=== PATIENT | female | born 2000 | race Caucasian/White ===

== ENCOUNTER 2021-05-24 08:33 | Outpatient (CLI) | payer BC, SELFPAY ==
--- NOTE | 2021-05-24 | ECHO_ITS ---
Patient Info Name: Lamar Ragsdale Age: 21 years : 2000 Gender: Female Ht: 68 in Wt: 234 lbs BSA: 2.30 m2 HR: 64 bpm BP: 124 / 87 mmHg Technical Quality: Good Exam Date: 05/24/2021 9:06 AM Exam Location: [facility] Patient Status: Outpatient Admit Date: 05/24/2021 Staff Ordering Physician: Eboni, Damaris Jacinto MD [place] Technician: Brit Burton RDCS Attending Provider: Eboni, Damaris Jacinto MD Referring Physician: Eboni CLRAK; Exam Type: CA echo doppler color flow Study Info Indications R00.2 - Palpitations Complete two-dimensional, color flow and Doppler transthoracic echocardiogram is performed. Summary 1. Complete two-dimensional, color flow and Doppler transthoracic echocardiogram is performed. 2. Left ventricular chamber dimension is normal. 3. Left ventricular systolic function is normal, estimated at 60-65%. 4. The left ventricular diastolic function is normal. 5. No pulmonary hypertension, estimated pulmonary arterial systolic pressure is 21 mmHg. Left Ventricle Tissue doppler is not performed. Left ventricular chamber dimension is normal. Left ventricular systolic function is normal, estimated at 60-65%. The left ventricular diastolic function is normal. Right Ventricle Right ventricular chamber dimension is normal. Right ventricular systolic function is normal. Left Atria Left atrial chamber dimension is normal. Right Atria Right atrial chamber dimension is normal. Aortic Valve The aortic valve is trileaflet. There is no aortic valve stenosis. There is no aortic valve regurgitation. Pulmonic Valve There is no pulmonic regurgitation. Mitral Valve There is no mitral valve stenosis. There is no mitral valve regurgitation. Tricuspid Valve There is no tricuspid valve regurgitation. No pulmonary hypertension, estimated pulmonary arterial systolic pressure is 21 mmHg. Pericardium/Pleural There is no pericardial effusion. Inferior Vena Cava Normal inferior vena cava with >50% collapse upon inspiration consistent with normal right atrial pressure, 5 mmHg. Aorta The aortic root size at the sinus of Valsalva is normal. Left Ventricular Outflow Tract Name Value Normal LVOT 2D LVOT Diameter 2.1 cm LVOT Doppler LVOT Peak Gradient 3 mmHg LVOT Mean Gradient 2 mmHg LVOT VTI 21 cm LVOT VTI/AV VTI Ratio 0.9 LVOT Stroke Volume 73 ml LVOT CO 4.5 l/min LVOT CI 2.0 l/min/m2 Pulmonic Valve Name Value Normal RVOT Doppler RVOT Peak Gradient 2 mmHg PV Doppler PV Peak Gradient
== END 2021-05-24 08:34 | disposition home or self-care (01) ==
PROVIDERS: PCP Pediatrics; Visit Provider Family Medicine
DX: R00.2 Palpitations (principal)
CPT/HCPCS: 93306

== ENCOUNTER 2022-02-16 10:38 | Emergency (ER) | payer BC, SELFPAY ==
[2022-02-16 10:46] VITALS: BP 116/79; PULSE 87; RESP 16; TEMP 35.8; O2SAT 99
--- NOTE | 2022-02-16 10:56 | ED.NAVMDI ---
HPI - Nausea/Vomiting/Diarrhea General Chief complaint: Nausea/Vomiting/Diarrhea Stated complaint: vomiting/lenz Time Seen by Provider: 02/16/22 10:56 Source: patient and RN notes reviewed Mode of arrival: ambulatory Limitations: no limitations History of Present Illness HPI Narrative: 22 y/o female presented for c/o headache and vomiting, onset 0230. Rates pain 11/03. Denies hematemesis, abdominal pain, diarrhea, photophobia, dizziness, vision changes, fever, body aches. Attempted advil 0700 but vomited after. Patient states previous two episodes required ER meds. Denies diagnosis of migraines. Denies sick contacts. LMP 2 weeks, IUD. Related Data Home Medications Medication Instructions Recorded Confirmed copper 380 square mm intrauterine 1 device intrauterine ONCE 06/05/21 02/16/22 device (ParaGard T 380A) Allergies Allergy/AdvReac Type Severity Reaction Status Date / Time shrimp Allergy Severe Difficulty Verified 02/16/22 10:41 Swallowing latex Allergy Intermediate Itching Verified 02/16/22 10:41 Review of Systems Review of Systems: CONSTITUTIONAL: Denies body aches, fever, chills ENT: Denies rhinorrhea, congestion CARDIOVASCULAR: Denies chest pain, palpitations, or edema. RESPIRATORY: Denies cough or dyspnea. GASTROINTESTINAL: Endorses nausea, vomiting. GENITOURINARY: Denies dysuria, hematuria, or CVA tenderness. SKIN: Denies rash, itching, or wounds. MUSCULOSKELETAL: Denies back pain, joint pain, or myalgia. NEUROLOGIC: reports headache, Denies numbness, tingling, or weakness. All systems reviewed & are unremarkable except as noted in HPI and below PMFSH Past Medical History Medical History Encounter for Nexplanon removal 01/09/2020 Insertion of Nexplanon (~01/25/17) Surgical History Surgical History H/O gynecological procedure Paragard insertion - 10/01/2020 History of cholecystectomy History of gynecological procedure mirena iud insertion - 01/16/2020 mirena iud removal - 10/01/2020 History of tonsillectomy Family History Family History Father Family history of thyroid disease Diverticulitis Grandparent Family history of thyroid disease Family history of malignant neoplasm of breast, Onset Age: 40 Sibling Epilepsy Asperger's disorder Mother Diabetes mellitus Social History Social History Smoking status: Never smoker Second hand tobacco smoke exposure: No Alcohol intake: never Comments At time of signature, I have reviewed and agree with nursing past medical, surgical, social and family history unless otherwise noted. Please see nursing chart for further information. There is no relevant family history pertinent to the presenting complaint Exam Narrative: GENERAL: ill-appearing, in no acute distress. EYES: EOMI. Conjunctivae normal. ENT: Mucous membranes pink and moist. CHEST: Clear to auscultation. HEART: Regular rate and rhythm. No murmur appreciated. Normal peripheral pulses. ABDOMEN: abd soft, nondistended, normal active bowel sounds. Pt is heaving and holding emesis basin. SKIN: Warm, dry, no rash. Capillary refill normal. Normal skin turgor. NEURO: Alert and oriented x3. PSYCH: Normal affect. Course Course Emergency Course: Patient is aware of diagnosis, understands and agrees to treatment plan. Anticipatory guidance given. Portions of this record may have been created with voice recognition software Level of Care: Express Care Visit Vital Signs Vital signs: Vital Signs Temperature 96.5 F L 02/16/22 10:46 Pulse Rate 87 02/16/22 10:46 Respiratory Rate 16 02/16/22 10:46 Blood Pressure 116/79 02/16/22 10:46 Pulse Oximetry 99 02/16/22 10:46 Oxygen Delivery Room Air 02/16/22 10:46 Temperature
[2022-02-16] MEDS: KETOROLAC (*BKC) 60 MG/2 ML VIAL IM (11:16)
[2022-02-16] MEDS: ONDANSETRON HCL ODT 4 MG TABLET SUBLINGUAL (11:19)
== END 2022-02-16 11:53 | disposition short-term general hospital (02) ==
PROVIDERS: Emergency Provider Nurse Practitioner Family; PCP Family Medicine
DX: R51.9 Headache, unspecified (principal); R11.10 Vomiting, unspecified
CPT/HCPCS: 96372; 99213; A9270; G0463; J1885

== ENCOUNTER 2024-02-18 07:18 | Outpatient (CLI) | payer BC, SELFPAY ==
--- NOTE | ~2024-02-18 | US_ITS ---
US breast RT complete INDICATION: Right breast pain TECHNIQUE: Dedicated Limited right breast ultrasound COMPARISON: No prior studies for comparison. FINDINGS: The right breast is/are composed of normal heterogeneous echotexture without focal solid or cystic mass. IMPRESSION: 1: Normal right breast ultrasound. BI-RADS CATEGORY 1 - NEGATIVE Reviewed, dictated and finalized at location B.
== END 2024-02-18 07:19 | disposition home or self-care (01) ==
LOC: MICIMG 07:19
PROVIDERS: PCP Obstetrics & Gynecology; Visit Provider Obstetrics & Gynecology
DX: N63.15 Unspecified lump in the right breast, overlapping quadrants (principal)
CPT/HCPCS: 76641